=== PATIENT | female | born 1965 | race Caucasian/White ===

== ENCOUNTER 2016-11-06 04:28 | Inpatient (IN) | payer BC ==
[2016-11-03 08:19] LABS: HEMATOCRIT 40.2 % (36.0-48.0); HEMOGLOBIN 13.6 g/dL (12.0-16.0)
--- NOTE | ~2016-11-06 | OP ---
Record Of Operation [facility] [address] [place]. [address] NAME: AIXA SANCHEZ : 61 STATUS : ADM IN [facility]#: [id number] AGE: 51 ADM/REG DATE : 11/06/16 MR#: [id number] REPORT SERV DATE: 11/08/16 DICTATED BY: EAN MENENDEZ II DATE: 11/08/16 REPORT STATUS : Draft TRANSCRIBED BY: MODL DATE: 11/08/16 DATE OF PROCEDURE: 11/06/2016 PREOPERATIVE DIAGNOSES: 1. Lumbar spinal stenosis, below multilevel fusion. 2. Left lower extremity radiculopathy. 3. Facet hypertrophy. POSTOPERATIVE DIAGNOSES: 1. Lumbar spinal stenosis, below multilevel fusion. 2. Left lower extremity radiculopathy. 3. Facet hypertrophy. PROCEDURE: 1. L4-L5 laminectomy. 2. Use of the microscope and stereotactic spinal imaging. SURGEON: Ean Menendez M.D. FLUIDS: 1300 mL LR. ESTIMATED BLOOD LOSS: 15 mL. DRAIN: One drain. COMPLICATIONS: No complications. ANTIBIOTIC: Preoperatively. PREOPERATIVE HISTORY: This is a friendly 51-year-old female, who has a complicated surgical past, but overall has done well with each of her surgeries. She is now having radiating pain into the buttock and leg. We discussed the pros and cons of surgery. She wished to proceed. DESCRIPTION OF PROCEDURE: After informed consent was obtained, the patient was brought to the operating room at her request and general anesthesia achieved. She was placed in the prone position and the back was prepped and draped in a sterile fashion. The stereotactic spinal pin was placed into the right iliac crest and the intraoperative CT scan completed. The stereotactic guidance was then used throughout the remainder of the case. At this point, the minimally invasive incision was performed on the left and a minimally invasive quadrant retractor was placed and the microscope was brought into place. Under microscopic visualization, the laminectomy was performed. The spinal laminar junction was taken down. The unilateral approach used to perform the bilateral decompression. The dura was then well decompressed and portions of the facets now removed. The L5 nerve root was well decompressed in particular on the left. The L4 nerve root was evaluated and minimal Record Of Operation [facility] [address]. [address] NAME: AIXA SANCHEZ : 61 STATUS : ADM IN PAT#: [id number] AGE: 51 ADM/REG DATE : 11/06/16 MR#: [id number] REPORT SERV DATE: 11/08/16 DICTATED BY: EAN MENENDEZ II DATE: 11/08/16 REPORT STATUS : Draft TRANSCRIBED BY: OSWALD DATE: 11/08/16 compression noted. At this point, the area was now irrigated. Hemostasis was achieved and standard closure performed over a drain. The drain was placed in anticipation that she was going to spend the night. At this point, the patient was extubated and transferred to PACU in stable condition. MARIZOL/OSWALD Ean Menendez II, M.D. / [id number] CC: Iveth Jones II, NP
--- NOTE | ~2016-11-06 | DS ---
Discharge Summary [facility] [address] [place]. [address] NAME: AIXA SANCHEZ : 61 STATUS : DIS IN PAT#: [id number] AGE: 51 ADM/REG DATE : 11/06/16 MR#: [id number] REPORT SERV DATE: 11/17/16 DICTATED BY: EAN MENENDEZ II DATE: 11/16/16 REPORT STATUS : Draft TRANSCRIBED BY: MODCandido DATE: 11/16/16 Data Collection from hospitalization DISCHARGE DIAGNOSIS(ES): 1. Lumbar spinal stenosis, below multilevel fusion. 2. Left lower extremity radiculopathy. 3. Facet hypertrophy. 4. Gastroesophageal reflux disease. 5. Hiatal hernia. 6. Hypothyroidism. 7. Mzb-onrrycb-dtkmwqnis diabetes mellitus. 8. Osteoarthritis. CONSULTATIONS: None. PROCEDURES PERFORMED: 1. L4-L5 laminectomy. 2. Use of the microscope and stereotactic spinal imaging, 11/06/2016. PATHOLOGY: Bone and soft tissue, lumbar spine excision, cartilage, bone, and skeletal muscle. MEDICATIONS: Vitamin B12 of 1000 mcg IM every 30 days; Maximum D3 one three times weekly on Wednesday, Wednesday, and Wednesday; Neurontin 400 mg three times a day; Synthroid 75 mcg every morning; MS Contin 30 mg twice daily as needed; Movantik 25 mg at bedtime; Ditropan 10 mg every morning; Prilosec 20 mg every morning; Zocor 40 mg at bedtime; Effexor XR 75 mg every morning; Ambien 10 mg at bedtime; estrogen chaka one sublingually twice daily; Prometrium 200 mg at bedtime; Robaxin 750 mg every four hours; oxycodone 15 mg one every 4-6 hours as needed; and Valium 5 mg one every 4 hours as needed. CONDITION AT DISCHARGE: Upon discharge, she did appear to be doing well and had no new complaints. Her incision looked good. DISPOSITION: She was discharged home to continue a regular diet with activity as discussed. She was to follow up with me in the office on 12/01/2016. HOSPITAL COURSE: This 51-year-old female had been complaining of cervical and lumbar related symptoms. Her symptoms were located in the lower back with radiation into the left greater than right lower extremity and were associated with numbness, tingling, and weakness. She reported that she was last seen in the office two months prior to admission and notified her lumbar fusion had been denied. When asked about the severity level of the symptoms, she reported a pain level of 8 on a 0-10 scale. Her pain and symptoms had worsened since her last visit. She was unable to work due to her pain. She admitted to the following factors that modified her symptoms; most activities or movements, lying on her left side and sitting for extended periods of time worsened her pain and symptoms, changing positions and walking decreases the severity of the pain and symptoms. She had been taking oxycodone, Robaxin, Mobic, and Tylenol to treat her pain and symptoms. She had also reported as a side note that her SCS battery was not lasting as long as it used to and only reached the right lower Discharge Summary [place] [id number] [facility] [place]. [address] NAME: AIXA SANCHEZ : 61 STATUS : DIS IN PAT#: [id number] AGE: 51 ADM/REG DATE : 11/06/16 MR#: [id number] REPORT SERV DATE: 11/17/16 DICTATED BY: EAN MENENDEZ II DATE: 11/16/16 REPORT STATUS : Draft TRANSCRIBED BY: OSWALD DATE: 11/16/16 extremity and had tried reprogramming with [employer] reps and informed another lead would need to be placed to help with the left lower extremity. Surgery had been discussed with the patient, and she was agreeable to proceed. She was now admitted for this and further treatment. Upon admission to the hospital, she was taken to the operating room where she did undergo the above procedure. She had tolerated this well and was transferred to the recovery room. On postop day #1, she did appear to be doing well and had no leg pain. She was afebrile, and her vital signs were stable. She had been evaluated by Physical Therapy. On postop day #2, she did continue to do well and had no new complaints. She did continue on her current medications. On postop day #3, she had remained in stable condition, and as she continued to do well, she was then discharged with the above instructions. Information collected by: Kacy JacquesIZurdoT. I submit the above information as my discharge summary. SACHIN/OSWALD Ean Menendez II, M.D. / [id number] CC: Iveth Jones II, NP
[~2016-11-06 04:28] MED LIST: AMB10 PO; AMITIZA8 MCG PO; ANTI-INFLAMMATORY; B121000P IM; DITRO5 PO; EFFEXXR75 PO; ETODOLAC ER600 MG PO; LIOR10 PO; MAXIMUM D3 PO; METAMUCIL CAN7 OZ PO; METHOC750B PO; MOBIC15 MG PO; MOVANTIK25 MG PO; MSCONTIN PO; MULTIPLE VIT PO; NEUR400 PO; PERCOCET1 TA4 PO; PRILO PO; PROMETRIUM200 MG PO; ROXICODONE15 MG PO; SYN.05 PO; SYN075 PO; ULTRAM50 PO; V2 PO; ZOCOR10 PO; ZOCOR40 PO; [UNRECOGNIZED DRUG - MIXTURE] SL
[2016-11-08] MEDS ORDERED: MSCONTIN PO ×2 (07:06→07:07)
[2016-11-08] MEDS ORDERED: V5 PO (07:07)
[2016-11-08] MEDS ORDERED: ROXICODONE15 MG PO (07:07)
== END 2016-11-09 13:01 | disposition home or self-care (01) | DRG 520 ==
LOC: SDC 04:28 → 3SO 09:49
PROVIDERS: Orthopaedic Surgery
PROC: 0ST20ZZ Resection of Lumbar Vertebral Disc, Open Approach (ICD-10-PCS; 2016-11-06)
PROC: 01NB0ZZ Release Lumbar Nerve, Open Approach (ICD-10-PCS; principal; 2016-11-06 05:45)
DX: M51.16 Intervertebral disc disorders with radiculopathy, lumbar region (principal); E03.9 Hypothyroidism, unspecified; K21.9 Gastro-esophageal reflux disease without esophagitis; E11.9 Type 2 diabetes mellitus without complications
CPT/HCPCS: 85014; 85018; 88304; 88311; 93005; 97110-GP; 97116-GP; 97162-GP; A9270-GY; G8978-CJ-GP; G8979-CH-GP; J1030; J1170; J1580; J2250; J2405; J2550; J2710; J3010; J3370

== ENCOUNTER 2016-12-01 17:52 | Inpatient (IN) | payer BC ==
--- NOTE | ~2016-12-01 | DS ---
Discharge Summary [facility] [address] [place]. [address] NAME: AIXA SANCHEZ : 61 STATUS : DIS IN PAT#: [id number] AGE: 51 ADM/REG DATE : 12/01/16 MR#: [id number] REPORT SERV DATE: 12/14/16 DICTATED BY: EAN MENENDEZ II DATE: 12/13/16 REPORT STATUS : Draft TRANSCRIBED BY: MODL DATE: 12/13/16 ADMISSION DATE: 12/01/2016 DISCHARGE DATE: 12/08/2016 HOSPITAL COURSE: A very friendly 51-year-old female, admitted secondary to severe pain in the buttock and leg. She had failed a simple laminectomy recently. It did work short-term, but the pain returned. She was adamant that she be admitted to the hospital and "fixed." This was done on 12/02/2016 and she underwent a L4-L5 interbody arthrodesis with instrumentation. She did well postoperatively as she normally does. She usually requires slightly longer hospitalization. Ultimately, she was mobilizing well with physical therapy. She was going outside frequently and I missed her on rounds on several occasions. Early in the morning, she was sometimes off before. Nevertheless, she did well and she was stable and discharged from the physical therapy standpoint. She was discharged home with a walker which she was requiring at some degree. Her leg pain was improved and overall she was voiding well and tolerating a diet. She will follow up in the office in approximately two and half weeks. DICTATED BY: Iveth Jones II/OSWALD Ean Menendez II, M.D. / [id number] CC: Iveth Jones II, NP
--- NOTE | ~2016-12-01 | OP ---
Record Of Operation [facility] [address] [place]. [address] NAME: AIXA SANCHEZ : 61 STATUS : DIS IN PAT#: [id number] AGE: 51 ADM/REG DATE : 12/01/16 MR#: [id number] REPORT SERV DATE: 12/13/16 DICTATED BY: EAN MENENDEZ II DATE: 12/13/16 REPORT STATUS : Draft TRANSCRIBED BY: MODL DATE: 12/13/16 DATE OF PROCEDURE: 12/02/2016 PREOPERATIVE DIAGNOSES: 1. Recurrent right lower extremity radiculopathy. 2. Stenosis L4-L5. 3. Facet arthrosis L4-L5. 4. Adjacent segment degeneration below multilevel fusion. POSTOPERATIVE DIAGNOSES: 1. Recurrent right lower extremity radiculopathy. 2. Stenosis L4-L5. 3. Facet arthrosis L4-L5. 4. Adjacent segment degeneration below multilevel fusion. PROCEDURE: 1. Revision facetectomy at L4-L5 (medically necessary to perform a revision decompression of the L4 and L5 nerve roots). 2. Interbody arthrodesis L4-L5. 3. Application of prosthetic device L4-L5. 4. Posterolateral arthrodesis L4-L5. 5. Posterior nonsegmental instrumentation L4-L5. 6. Use of local autograft, allograft substitute, and bone morphogenic protein. 7. Use of the microscope and stereotactic spinal imaging. SURGEON: Ean Menendez M.D. FLUIDS: 1200 mL LR. ESTIMATED BLOOD LOSS: 100 mL. DRAIN: One drain. COMPLICATIONS: None. ANTIBIOTIC: Preoperatively. IMPLANTS: Alphatec. PREOPERATIVE HISTORY: This is a very friendly, 51-year-old female, who is admitted secondary to the severe radiculopathy. She did well following her laminectomy alone but it appears based upon her complaints and imaging that she simply has the need for more aggressive decompression. The patient was having primarily pains down the right buttock but also down the left leg to a certain extent. Overall, the previous decompression was helpful very short-term, but her leg pains have returned. Again, she is going to require greater than 75% resection of the joint, especially on the right with some decompression additionally on Record Of Operation [place] [id number] [place] [address] NAME: AIXA SANCHEZ : 61 STATUS : DIS IN PAT#: [id number] AGE: 51 ADM/REG DATE : 12/01/16 MR#: [id number] REPORT SERV DATE: 12/13/16 DICTATED BY: EAN MENENDEZ II DATE: 12/13/16 REPORT STATUS : Draft TRANSCRIBED BY: MODCandido DATE: 12/13/16 the left of the facet. At this point, I believe that the facet is likely also hypermobile, adjacent to a multilevel fusion and simply biomechanically the facets are likely increasingly becoming sloppy given the biomechanical loads carried by them below the multilevel fusion. She was admitted secondary to her calling the office on multiple occasions, coming by the office complaining of pain. She overall has done well with her surgeries in the past. She has had multiple surgeries and surprisingly has done well and continues to return to work. DESCRIPTION OF PROCEDURE: After informed consent was obtained, the patient was brought to the operating room at her request and general anesthesia achieved. She was placed in prone position. The back was prepped and draped in a sterile fashion. The stereotactic spinal pin was placed in the left into the iliac crest. The intraoperative CT scan completed. Stereotactic guidance was used throughout the case. Next, the minimally invasive incision was performed on the right at L4-L5. The quadrant retractor was placed and the medial to lateral blades was also employed. The microscope was brought into place and under microscopic visualization, the facet capsule was removed. At this point, we had a better evaluation of the facets. There was a moderate amount of gapping. At this point, the microscope now in place, the pars was now removed. This allowed for more aggressive decompression and also the L4 nerve root. There was moderate compression of the L4 nerve roots at its takeoff point by the ligamentum flavum. The L5 nerve root was then examined and found to have still persistent compression upon it from the residual facet. The complete facetectomy was now carried out and now at this point, both the inferior and superior facets have been removed. I then also took down additional spinal laminar junction and decompressed the contralateral recess to a more definitive degree. The area was now irrigated. At this point, the L5 nerve root was gently retracted. The diskectomy initiated with a knife followed by use of the pituitary rongeurs, Kerrison rongeurs, and curettes. The area was now denuded of its cartilage. Punctate bleeding bone was identified on both endplates. At this point, the disk space also appeared to be moderately hypermobile. The endplates again were prepared and confirmed to be ready for implantation of the prosthetic device. At this point, the disk space was irrigated, followed by placement of local autograft into the anterior disk space. The prosthetic device was then well placed also into the anterior column. Next, the pedicle screws were applied into L4 and L5. A 7.5 mm screws were placed. The bone quality was excellent. The percutaneous screws were placed on the left. A repeat CT scan confirmed acceptable placement of the implants, otherwise rods were then well assembled and final tightening performed. Next, the decortication was performed on the right of the transverse process of L4 and L5 and local autograft, allograft substitute, and bone morphogenic protein were applied to the Record Of Operation [address] [address] NAME: AIXA SANCHEZ : 61 STATUS : DIS IN PAT#: [id number] AGE: 51 ADM/REG DATE : 12/01/16 MR#: [id number] REPORT SERV DATE: 12/13/16 DICTATED BY: EAN MENENDEZ II DATE: 12/13/16 REPORT STATUS : Draft TRANSCRIBED BY: MODL DATE: 12/13/16 decorticated surfaces. Hemostasis was now achieved except for some mild cancellous bone bleeding, for which a deep drain was placed. Standard closure was performed, and the patient was extubated and transferred to PACU in stable condition. MARIZOL/OSWALD Ean Menendez II, M.D. / [id number] CC: Iveth Jones II, NP
--- NOTE | ~2016-12-01 | HP ---
History And Physical [place] [id number] [place]. [address] NAME: AIXA SANCHEZ : 61 STATUS : DIS IN PAT#: [id number] AGE: 51 ADM/REG DATE : 12/01/16 MR#: [id number] REPORT SERV DATE: 12/13/16 DICTATED BY: EAN MENENDEZ II DATE: 12/13/16 REPORT STATUS : Draft TRANSCRIBED BY: MODL DATE: 12/13/16 DATE OF ADMISSION: 12/01/2016 ADMISSION DIAGNOSES: 1. Severe buttock and leg pain, right greater than left. 2. History of multiple lumbar fusions. 3. Status post more recent laminectomy with recurrent leg pain. HISTORY OF PRESENT ILLNESS: A very friendly 51-year-old female, who was admitted secondary to severe pain in the buttock and leg. She had done well short-term following the laminectomy. The initial more complete facetectomy and fusion have been denied by insurance, and she wished to proceed with the laminectomy and hopes that it would adequately decrease her leg pain. She unfortunately did well initially, but now is having severe return of her leg pain, and she is adamant that she be "fixed." We discussed overall the surgery was again a last resort. We discussed other options such as continuing medications, epidural steroid injections, but she was adamant that she wanted to be admitted for pain control, but she overall appeared more interested in having the problem fixed than taking pain medications. PAST MEDICAL HISTORY: As above. She has a history of multiple spinal surgeries. She denies any significant cardiac history. REVIEW OF SYSTEMS: She denies any chest pain, shortness of breath, or bowel or bladder changes. She does report the numbness in her leg is worsening. She reports some increasing weakness in her leg. MEDICATIONS: Please see the MAR. PHYSICAL EXAMINATION: GENERAL: Reveals a female in mild distress secondary to pain. NECK: Supple. CHEST: Reveals no stridor on inspiration or expiration. CARDIOVASCULAR: Regular rate and rhythm. I palpate the radial pulse. ABDOMEN: Soft. SKIN: Her back incisions appear well healed. There is no evidence of infection, erythema, or fluctuance. NEUROLOGIC: She does have good strength in the left lower extremity. The right lower extremity shows 5/5 strength in the lower extremity with the exception of 4-/5 extensor hallucis longus. She has 4+/5 in the tibialis anterior. She has some L4-L5 dysesthesias. IMAGING: Shows fairly bulky facets with some congenital narrowing of the canal but mild. The lateral recesses appeared to be more impinged upon by the large facets. There is some mild to moderate gapping of the facets themselves. IMPRESSION/PLAN: A 51-year-old female with a history of multilevel fusion with now some History And Physical [address] [place]. [address] NAME: AIXA SANCHEZ : 61 STATUS : DIS IN PAT#: [id number] AGE: 51 ADM/REG DATE : 12/01/16 MR#: [id number] REPORT SERV DATE: 12/13/16 DICTATED BY: EAN MENENDEZ II DATE: 12/13/16 REPORT STATUS : Draft TRANSCRIBED BY: OSWALD DATE: 12/13/16 recurrent stenosis at L4-5. It appears that she is going to require a more complete facetectomy with stabilization as a result of the destabilization of the facets. MARIZOL/OSWALD Ean Menendez II, M.D. / [id number] CC: Iveth Jones II, NP
[~2016-12-01 17:52] MED LIST changes: +V5 PO
[2016-12-01 20:52] LABS: BASOPHILS 0.2 %; BASOPHILS ABSOLUTE 0.02 10/3/uL (0.0-0.16); EOSINOPHILS 1.8 %; EOSINOPHILS ABSOLUTE 0.17 10/3/uL (0.0-0.53); HEMATOCRIT 42.2 % (36.0-48.0); HEMOGLOBIN 14.2 g/dL (12.0-16.0); IMMATURE GRANULOCYTES 0.2 %; IMMATURE GRANULOCYTES ABSOLUTE 0.02 10/3/uL (0.0-0.11); LYMPHOCYTES 24.4 %; LYMPHOCYTES ABSOLUTE 2.33 10/3/uL (0.67-4.30); MEAN CORPUS HGB CONC 33.6 g/dL (32.0-36.0); MEAN CORPUSCULAR HEMOGLOB 32.9 pg (26.0-34.0); MEAN PLATELET VOLUME 9.3 fL (9.2-13.0); MONOCYTES 9.5 %; MONOCYTES ABSOLUTE 0.91 10/3/uL (0.21-1.20); NEUTROPHILS 63.9 %; NEUTROPHILS ABSOLUTE 6.08 10/3/uL (2.02-8.40); PLATELET COUNT 281 10/3/uL (150-400); RBC DISTRIBUTION WIDTH 11.9 % (12.0-16.0); RED CELL COUNT 4.32 10/6/uL (4.0-5.6); WHITE BLOOD CELLS 9.5 10/3/uL (4.5-10.5)
[2016-12-01 20:54] LABS: MANUAL DIFF NO %; MEAN CORPUSCULAR VOLUME 97.7 fL (80-100)
[2016-12-01 21:10] LABS: ALBUMIN 3.1 G/DL (3.5-5.0); BUN (BLOOD UREA NITROGEN) 11 MG/DL (6-23); CALCIUM, SERUM 8.6 MG/DL (8.5-10.4); CHLORIDE, SERUM 106 MMOL/L (96-112); CO2 (CARBON DIOXIDE) 29 MMOL/L (24-34); CREATININE 0.76 MG/DL (0.55-1.02); GFR AFRICAN AMERICAN 104 ML/MIN (>=60); GFR NON AFRICAN AMERICAN 90 ML/MIN (>=60); GLOBULIN 3.2 G/DL (2.5-4.1); GLUCOSE, SERUM 88 MG/DL (60-99); SGOT(AST) 152 U/L (5-40); SGPT(ALT) 55 U/L (5-65); SODIUM, SERUM 138 MMOL/L (135-148); TOTAL BILIRUBIN 0.2 MG/DL (0-1.2); TOTAL PROTEIN 6.3 G/DL (6.0-8.5)
[2016-12-01 21:12] LABS: ALKALINE PHOSPHATASE 49 U/L (45-117)
[2016-12-02] MEDS ORDERED: B121000P IM/SC (00:32)
[2016-12-02] MEDS ORDERED: MAXIMUM D3 PO (00:32)
[2016-12-02] MEDS ORDERED: METHOC750B PO (00:33)
[2016-12-02] MEDS ORDERED: SYN075 PO (00:33)
[2016-12-02] MEDS ORDERED: NEUR400 PO (00:33)
[2016-12-02] MEDS ORDERED: MSCONT15 PO (00:36)
[2016-12-02] MEDS ORDERED: MSCONTIN PO (00:36)
[2016-12-02] MEDS ORDERED: PERCOCET 10/3251 TAB PO (00:37)
[2016-12-02] MEDS ORDERED: PRILO PO (00:37)
[2016-12-02] MEDS ORDERED: DITROPAN XL10 MG PO (00:37)
[2016-12-02] MEDS ORDERED: MOVANTIK25 MG PO (00:37)
[2016-12-02] MEDS ORDERED: ROXICODONE15 MG PO (00:38)
[2016-12-02] MEDS ORDERED: ZOCOR40 PO (00:38)
[2016-12-02] MEDS ORDERED: PROMETRIUM200 MG PO (00:38)
[2016-12-02] MEDS ORDERED: EFFEXXR75 PO (00:38)
[2016-12-02] MEDS ORDERED: AMB10 PO (00:39)
[2016-12-02] MEDS ORDERED: V5 PO (00:39)
[2016-12-02] MEDS ORDERED: HORMONE REPLACEMENT PO (00:41)
== END 2016-12-08 13:51 | disposition home or self-care (01) | DRG 460 ==
LOC: 1SO 17:52
PROVIDERS: Orthopaedic Surgery
PROC: 0SG00AJ Fusion of Lumbar Vertebral Joint with Interbody Fusion Device, Posterior Approach, Anterior Column, Open Approach (ICD-10-PCS; principal; 2016-12-02 16:00)
PROC: 0SG00Z1 (ICD-10-PCS; 2016-12-02 16:00)
PROC: 0ST20ZZ Resection of Lumbar Vertebral Disc, Open Approach (ICD-10-PCS; 2016-12-02 16:00)
PROC: 4A11X4G Monitoring of Peripheral Nervous Electrical Activity, Intraoperative, External Approach (ICD-10-PCS; 2016-12-02 16:00)
DX: M51.16 Intervertebral disc disorders with radiculopathy, lumbar region (principal); E03.9 Hypothyroidism, unspecified; M47.9 Spondylosis, unspecified; M54.5 Low back pain; G89.29 Other chronic pain; Z79.891 Long term (current) use of opiate analgesic; Z79.899 Other long term (current) drug therapy; Z87.891 Personal history of nicotine dependence; Z98.1 Arthrodesis status; Z88.0 Allergy status to penicillin; Z91.048 Other nonmedicinal substance allergy status
CPT/HCPCS: 72131; 80053; 82962; 85025; 88304; 88311; 97116-GP; 97161-GP; A9270-GY; C1713; C1768; J0690; J1170; J2250; J2405; J2550; J2710; J3010; J3360; J3370